=== PATIENT | female | born 1985 | race Caucasian/White ===

== ENCOUNTER 2016-05-19 17:10 | Emergency (ER) | payer MEDICAID ==
[2016-05-19] MEDS ORDERED: ONDANSETRON ODT 4 MG TAB ONE (19:04)
== END 2016-05-19 21:38 | disposition home or self-care (01) ==
LOC: ER 17:10
CPT/HCPCS: 70450; 72100; 72220

== ENCOUNTER 2016-05-24 14:05 | Emergency (ER) | payer OTHER, MEDICAID | END 2016-05-24 15:57 | disposition home or self-care (01) | LOC: FASTR 14:05 | CPT/HCPCS: 70150 ==

== ENCOUNTER 2016-05-28 14:41 | Emergency (ER) | payer MEDICAID | END 2016-05-28 17:34 | disposition home or self-care (01) | LOC: ER 14:41 | DX: S39.012A Strain of muscle, fascia and tendon of lower back, initial encounter (principal); F17.210 Nicotine dependence, cigarettes, uncomplicated | CPT/HCPCS: 72072 ==

== ENCOUNTER 2016-06-05 20:00 | Emergency (ER) | payer MEDICAID ==
[2016-06-05] MEDS ORDERED: ASPIRIN 81 MG CHEW TAB ONE ×2 (20:21→20:26)
[2016-06-05] MEDS ORDERED: SODIUM CHLORIDE 0.9% 1,000 ML ONE (20:22)
== END 2016-06-05 22:16 | disposition home or self-care (01) ==
LOC: ER 20:00
DX: R00.0 Tachycardia, unspecified (principal); F41.8 Other specified anxiety disorders; F17.210 Nicotine dependence, cigarettes, uncomplicated
CPT/HCPCS: 36415; 71010; 80053; 82550; 83735; 84439; 84443; 84484; 85025; 85610; 85730; 93005; 96361